=== PATIENT | male | born 1975 | race African-American/Black ===

== ENCOUNTER → 2020-07-30 06:03 | Day surgery (SDC) | payer OTHER ==
--- NOTE | 2020-07-30 08:00 | NUR ---
NO BOWEL PREP DONE, SENT BACK TO [facility]
== END | disposition home or self-care (01) ==
LOC: D.OPS 06:03
PROVIDERS: ATTEND Surgery
DX: K63.5 Polyp of colon (principal); Z53.9 Procedure and treatment not carried out, unspecified reason